=== PATIENT | female | born 1990 | race Caucasian/White ===

== ENCOUNTER 2024-06-30 12:39 | Emergency (ER) | payer OTHER, SELFPAY ==
[2024-06-30 12:55] VITALS: BP 123/89
[2024-06-30 13:24] LABS: % Basophils 0.6 % (0-2); % Eosinophils 2.7 % (0-6); % Lymphocytes 15.9 % (20.5-51.1); % Monocytes 18.3 % (1.7-9.3); % Neutrophils 62.5 % (42.2-75.2); Absolute Eosinophils 0.1 10^3/uL (0-0.7); Absolute Lymphocytes 0.5 10^3/uL (1.2-3.4); Absolute Monocytes 0.6 10^3/uL (0.1-0.6); Absolute Neutrophils 2.1 10^3/uL (1.4-6.5); Hematocrit 35.8 % (37.0-47.0); Hemoglobin 12.6 g/dL (12.0-16.0); Mean Corp Hgb Conc. 35.2 g/dL (33.0-37.0); Mean Corpuscular Hgb 32.1 pg (27.0-31.0); Mean Corpuscular Volume 91.3 fL (81.0-99.0); Nucleated Red Blood Cells % 0 %; Platelet Count 243 10^3/uL (130-400); Red Blood Cell Count 3.92 10^6/uL (4.20-5.40); Red Cell Dist. Width 12.1 % (11.5-14.5); White Blood Cell Count 3.3 10^3/uL (4.8-10.8)
[2024-06-30 13:39] LABS: ALT (SGPT) 65 U/L (0-35); AST (SGOT) 68 U/L (14-36); Alkaline Phosphatase 47 U/L (38-126); Blood Urea Nitrogen 9 mg/dl (7-17); Calcium 9.1 mg/dl (8.4-10.2); Carbon Dioxide 28 mmol/L (22-30); Chloride 99 mmol/L (98-107); Glucose 112 mg/dl (70-99); Lipase 69 U/L (23-300); Potassium 4.2 mmol/L (3.5-5.1); Sodium 137 mmol/L (135-145); Total Bilirubin 0.4 mg/dl (0.2-1.3); Total Protein 6.9 g/dl (6.3-8.2); eGFR > 60.00
--- NOTE | 2024-06-30 15:03 | ED.GENMED ---
History of Present Illness
General
Chief Complaint: Abdominal Symptoms
Time Seen by Provider: 06/30/24 15:02
History of Present Illness
History of Present Illness:
TIME OF INITIAL ENCOUNTER: 3:05 PM
HPI: 4 days ago, the patient was eating food and shortly after developed diarrhea. This is associated with some degree of cramping. She has not had any vomiting but also developed some fevers and chills sensation recently. She had such
severe diarrhea overnight that she ended up taking Imodium. Therefore the frequency of diarrhea has lessened currently.
EXAM:
GENERAL: Well appearing in no distress
HEENT: Slightly dry oral mucosa
CARDIOVASCULAR: No murmurs, normal heart rate, regular rhythm, No chest wall tenderness
PULMONARY: No respiratory distress, breath sounds are clear and equal
ABDOMEN: Soft with no peritoneal signs, no tenderness
NEUROLOGIC: Excellent strength all extremities, no coordination deficits
PSYCHIATRIC: Appropriate mental status, normal insight and judgement
EXTREMITIES: Nontender, no edema, moves all extremities equally
SKIN: No rash, no lesions
NUMBER AND COMPLEXITY OF PROBLEMS ADDRESSED AT THE ENCOUNTER
� Chronic conditions affecting care: Anxiety, has had liver biopsy in the past
� Acute Exacerbation and/or Progression of Chronic Illness: This is an acute problem
� Differential Diagnosis includes: Viral syndrome, foodborne illness
AMOUNT AND/OR COMPLEXITY OF DATA TO BE REVIEWED AND ANALYZED
� I performed an independent evaluation of and my interpretation is:
EKG:
CT:
X-rays:
Laboratory Studies: White count 3.3, hemoglobin 12.6, chemistries unremarkable
Other:
� Review of other/old records: No old records available for review
� Clinical information was obtained by an independent historian: None needed
� Prescriptions/Medications Considered but not given: I offered and considered IV fluids over the patient declines stating that she has been able to adequately hydrate at home
� Further testing considered but not performed: Considered CT getting however the patient has no significant abdominal tenderness on examination
RISK OF COMPLICATIONS AND/OR MORBIDITY OR MORTALITY OF PATIENT MANAGEMENT
� Social determinants of health affecting care: Lives at home
� Discussion with other providers:
� Escalation of care including admission/observation vs risk of discharge considered: Patient's blood work is unremarkable. Mild leukopenia noted suggestive of viral syndrome.
ANY OTHER UPDATES:
4 PM: On reassessment, the patient continues to appear very well. Initial tachycardia has resolved. She does not appear to be in any pain. I will call her later with C. difficile results if they are abnormal and stool culture pending.
Phy Exam
Physical Exam
Physical Exam:
See HPI
Course
Orders/Labs/Results
Orders:
Orders
06/30/24 13:14
Complete Blood Count/With Diff Urgent
Comprehensive Metabolic Panel Urgent
Lipase Urgent
06/30/24 15:13
STOOL [C difficile Antigen & Toxins] Urgent
AYANA Source: Feces/Stool
Specimen Description:
Date Specimen was Collected: 06/30/24
Time Specimen was Collected: 15:50
Stool Culture Urgent
AYANA Source: Feces/Stool
Specimen Description:
Date Specimen was Collected: 06/30/24
Time Specimen was Collected: 15:50
06/30/24 15:56
Ibuprofen [Motrin] 600 mg PO NOW STA
Abnormal Lab Results
06/30/24
13:14
WBC 3.3 L 10^3/uL
(4.8-10.8)
RBC 3.92 L 10^6/uL
(4.20-5.40)
Hct 35.8 L %
(37.0-47.0)
MCH 32.1 H pg
(27.0-31.0)
Absolute Lymphs (auto) 0.5 L 10^3/uL
(1.2-3.4)
Lymphocytes % 15.9 L %
(20.5-51.1)
Monocytes % 18.3 H %
(1.7-9.3)
Glucose 112 H mg/dl
(70-99)
AST 68 H U/L
(14-36)
ALT 65 H U/L
(0-35)
06/30/24 13:14
06/30/24 13:14
Vital Signs
Initial and Last Documented VS:
Initial Vital Signs
Temp Pulse Resp BP Pulse Ox
37.6 C 118 16 123/89 99
06/30/24 12:55 06/30/24 12:55 06/30/24 12:55 06/30/24 12:55 06/30/24 12:55
Last Documented Vital Signs
Temp Pulse Resp BP Pulse Ox
37.6 C 118 16 123/89 99
06/30/24 12:55 06/30/24 12:55 06/30/24 12:55 06/30/24 12:55 06/30/24 12:55
*Critical Care Note
Total Time (30-74mins, 75-104mins- exclusive of procedures): Not Applicable
ED Attending Note
-
Portions of this chart may have been created with voice recognition software.� Occasional wrong word or��sound alike� substitutions may have occurred due to the inherent limitations of voice recognition software.
Discharge Plan
Departure
Patient Disposition: Home (Routine Discharge)
Date of Disposition: 06/30/24
Time of Disposition: 15:57
Patient with high blood pressure during this ER visit?: Yes
Discharge Problem:
Diarrhea
Instructions: Diarrhea in teens and adults
Referrals:
Virgil Mohan, DO [Family Provider] -
Activity Restrictions/Additional Instructions:
Stool studies are pending. I will call you later today if the C. difficile test is positive. You will only be notified in the next few days if the stool culture is abnormal. Return here if worse or other concerns.
Interventions
Interventions:
*Risk Screen - Suicide Last Done: 06/30/24 12:55
*General Assessment Last Done: 06/30/24 12:55
*Neglect/Abuse Screening Last Done: 06/30/24 12:55
*ED COVID-19 Vaccine History Last Done: 06/30/24 12:55
Discharge Date and Time
Print Language: [place]
[2024-06-30] MEDS: MOTRIN 600 MG PO (16:04)
[2024-06-30 16:14] VITALS: BP 105/58
== END 2024-06-30 16:19 | disposition home or self-care (01) ==
LOC: EMR 12:39
PROVIDERS: Emergency Medicine; EMERGENCY PHYSICIAN Emergency Medicine; FAMILY PHYSICIAN Family Medicine
DX: R19.7 Diarrhea, unspecified (principal)
CPT/HCPCS: 99282; 80053; 83690; 85025; 87045; 87046; 87324; 87427; 87449